=== PATIENT | male | born 1955 | race Caucasian/White ===

== ENCOUNTER 2018-03-29 05:26 | Observation (INO) | payer OTHER ==
--- NOTE | 2018-03-24 08:36 | GHP ---
[f rep st] PREOP HISTORY AND PHYSICAL DATE OF SURGERY: He will be an a.m. admission for surgery at [facility] on March 29. PROBLEM: Left knee arthritis. HISTORY OF PRESENT ILLNESS: The patient is a 62-year-old man admitted for a left total knee arthropl asty. He has known severe degenerative arthritis in his left knee. The pain is debilitating and it limits his activities of daily living. He has failed previous injection therapy. He has also tried physical therapy without benefit. He will undergo a left total knee arthroplasty. PAST MEDICAL HISTORY: He is treated for hypertension. He has an enlarged prostate and has had some mild problems with urinary retention. He had a brain aneurysm treated with surgery in 2002. CURRENT MEDICATIONS: Amlodipine 10 mg per day, tamsulosin 0.4 mg per day, venlafaxine extended relea se 150 mg per day, Ambien 10 mg p.r.n. for sleep. SOCIAL HISTORY: The patient does not smoke cigarettes and drinks occasional alcohol. 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 His daughter is going to stay with him when he goes home [facility]. FAMILY HISTORY: Positive for cancer. PHYSICAL EXAMINATION: VITAL SIGNS: Height 6 feet 1 inch. Weight 235 pounds. BMI 31. EYES: Conju nctivae and sclerae are clear. Pupils are round and reactive. MOUTH: He has complete upper and low er dentures. CHEST: Clear. HEART: Regular rhythm. No murmurs. EXTREMITIES: Pertinent findings limited to his left knee. No effusion. He is tender along the medial joint line. He has mild pseud olaxity of his medial collateral ligament. His ligaments are otherwise stable. He has full extensio n to 120 degrees of flexion. IMAGING: His films show advanced medial compartment degenerative arthritis in the left knee. He is bone on bone. He has peripheral osteophytes and subchondral sclerosis. IMPRESSION ON ADMISSION: 1. Left knee advanced medial compartment degenerative arthritis. He is prepared for a left total kn ee arthroplasty. 2. Treatment for hypertension. 3. History of prostate enlargement with occasional urinary retention. 4. Brain aneurysm surgery in 2002. 5. Treatment for depression. PLAN: He will undergo a left total knee arthroplasty. The surgery has been described to him, includ ing the risks, complications, expectations, and recovery time. I have stressed the importance of pos toperative physical therapy. I have advised him that around 15% of people do not get a satisfactory result with a total knee replacement. All his questions have been answered and he consents to ezra emerson. He set up to go to outpatient physical therapy in [place]. /[id number]/MODL
[2018-03-29] MEDS ORDERED: LIDOCAINE 1% 2 ML INJ ID PRN (05:40)
[2018-03-29] MEDS ORDERED: ceFAZolin 2 GM/SWFI 2 GM/20 ML SYR IVP ONE (05:40)
[2018-03-29] MEDS ORDERED: ONDANSETRON 4 MG/2 ML VIAL IVP ONE (05:40)
[2018-03-29] MEDS ORDERED: LR 1,000 ML IV ONE (05:40)
[2018-03-29] MEDS ORDERED: FAMOTIDINE 20 MG TAB PO ONE (05:40)
[2018-03-29] MEDS ORDERED: ACETAMINOPHEN 325 MG TAB PO ONE (05:40)
[2018-03-29] MEDS ORDERED: GABAPENTIN 300 MG CAP PO ONE (05:40)
[2018-03-29] MEDS ORDERED: TRANEXAMIC ACID 3,000 MG in NS (SYRINGE) 50 ML IRR ONE (05:40)
[2018-03-29] MEDS ORDERED: DEXAMETHASONE 4 MG/ML VIAL IVP ONE (05:40)
[2018-03-29] MEDS ORDERED: ROPIVACAINE 0.2% 80 MG, EPINEPHrine 0.2 MG, KETOROLAC TROMETHAMINE 30 MG in SYRINGE 0 ML IU ONE (06:00)
[2018-03-29] MEDS ORDERED: TRANEXAMIC ACID 1,000 MG in NS (SYRINGE) 50 ML IV ONE (06:00)
[2018-03-29] MEDS ORDERED: POVIDONE-IODINE 20 ML in SODIUM CL IRRIG SOLUTION 500 ML IRR ONE (06:00)
[2018-03-29] MEDS ORDERED: VANCOMYCIN 1 GM VIAL ONE (06:36)
[2018-03-29] MEDS ORDERED: ceFAZolin 1 GM/5 ML SYR ONE (06:37)
--- NOTE | 2018-03-29 06:43 | PDANEPAE ---
ANE History of Present Illness 62 year old male with PMHx of HTN, previous brain aneursym s/p clipping, mild obesity and NEGAR risk factors presents for left total knee arthroplasty. ANE Past Medical History - Cardiovascular History Hx Hypertension: Yes Hx Arrhythmias: No Hx Chest Pain: No Hx Coronary Artery / Peripheral Vascular Disease: No Hx CHF / Valvular Disease: No Hx Palpitations: No - Pulmonary History Hx COPD: No Hx Asthma/Reactive Airway Disease: No Hx Recent Upper Respiratory Infection: No Hx Oxygen in Use at Home: No Hx Sleep Apnea: No Sleep Apnea Screening Result - Last Documented: Positive - Neurologic History Hx Cerebrovascular Accident: No Hx Seizures: No Hx Dementia: No Neurologic History Comment: brain aneurysm clipped - Endocrine History Hx Diabetes: No Hypothyroid: No Hyperthyroid: No Obesity: mild - Renal History Hx Renal Disorders: No - Liver History Hx Hepatic Disorders: No - Neurological & Psychiatric Hx Hx Neurological and Psychiatric Disorders: Yes Neurological / Psychiatric History Comment: no residule effect - Cancer History Hx Cancer: No - Congenital Disorder History Hx Congenital Disorders: No Congenital History Comment: grandfather had aortic anuerysm - GI History Hx Gastrointestinal Disorders: No - Other Health History Other Health History: dentures upper and lower - Chronic Pain History Chronic Pain: No - Surgical History Prior Surgeries: hernia repair ANE Review of Systems Review of systems is: negative Review of Systems: - Exercise capacity Exercise capacity: >=4 METS METS (RN): 4 METS ANE Patient History - Allergies Allergies/Adverse Reactions: No Known Allergies Allergy (Verified 02/28/18 13:58) - Home Medications Home medications: home medication list seen and reviewed Home Medications: Acetamn/Diphenhydramine 500/25 [Tylenol PM (*)] 1 each PO HS 02/28/18 [Last Taken Unknown] Multivitamins [Multivitamin (*)] 1 each PO DAILY 02/28/18 [Last Taken 03/22/18] Tamsulosin HCl [Flomax 0.4 MG (*)] 0.4 mg PO DAILY 02/28/18 [Last Taken 23:00] Venlafaxine Xr [Effexor Xr 75MG (*)] 150 mg PO DAILY 02/28/18 [Last Taken 04:00] Zolpidem Tartrate [Ambien 5MG (*)] 5 mg PO HS 04/09/18 [Last Taken 03/28/18 23: 00] amLODIPine BESYLATE [Norvasc 10 mg (*)] 10 mg PO DAILY 02/28/18 [Last Taken 06/08 23:00] - NPO status NPO Since - Liquids (Date): 03/28/18 NPO Since - Liquids (Time): 22:00 NPO Since - Solids (Date): 03/28/18 NPO Since - Solids (Time): 18:00 - Anes Hx Anes Hx: no prior problems - Smoking Hx Smoking Status: Former smoker Marijuana use: No - Alcohol Use Alcohol Use: Rarely - Family Anes Hx Family Anes Hx: neg - N/A Family Hx Anesthesia Complications: NONE ANE Labs/Vital Signs - Vital Signs Vital Signs: reviewed preoperatively; see RN documention for details Blood Pressure: 133/89 Heart Rate: 77 Respiratory Rate: 16 O2 Sat (%): 94 Height: 182.88 cm Weight: 104.326 kg ANE Physical Exam - Airway Neck exam: FROM Mallampati Score: Class 2 Mouth exam: normal dental/mouth exam - Pulmonary Pulmonary: no respiratory distress - Cardiovascular Cardiovascular: regular rate and rhythym - ASA Status ASA Status: III ANE Anesthesia Plan Anesthesia Plan: GA w LMA (General anesthesia as "back-up plan"), MAC, spinal Regional Anesthesia: continuous NB, adductor canal FNB, POPC/PSR Total IV Anesthesia: No
[2018-03-29] MEDS ORDERED: MIDAZOLAM 2 MG/2 ML VIAL IVP ONE (06:57)
--- NOTE | 2018-03-29 07:05 | PDHPUP ---
History & Physical Update H&P update statement: This history and physical update is based on an assessment of the patient which was completed after admission or registration (within 24 hours), but prior to the surgery/procedure. H&P update: H&P reviewed & patient examined
[2018-03-29] MEDS ORDERED: PROPOFOL/EMULSION 500 MG/50 ML BOTTLE IV ONE ×2 (07:07→08:01)
[2018-03-29] MEDS ORDERED: DEXAMETHASONE 4 MG/ML VIAL ONE (07:09)
[2018-03-29] MEDS ORDERED: HYDROmorphONE/DILAUDID 2 MG/ML INJ IVP PRN (08:13)
[2018-03-29] MEDS ORDERED: fentaNYL 100 MCG/2 ML INJ IVP PRN (08:13)
[2018-03-29] MEDS ORDERED: LR 500 ML IV PRN (08:13)
[2018-03-29] MEDS ORDERED: epHEDrine SULFATE 10 MG/ML SYR IVP PRN (08:13)
[2018-03-29] MEDS ORDERED: oxyCODONE IR 5 MG TAB PO PRN ×2 (08:13→09:17)
[2018-03-29] MEDS ORDERED: ONDANSETRON 4 MG/2 ML VIAL IVP PRN ×2 (08:13→09:17)
[2018-03-29] MEDS ORDERED: NALOXONE HCL 0.4 MG/ML INJ IVP PRN (08:13)
[2018-03-29] MEDS ORDERED: LABETALOL HCL 5 MG/ML 20 ML MDV IVP PRN (08:13)
[2018-03-29] MEDS ORDERED: ACETAMINOPHEN 500 MG TAB PO PRN (08:13)
[2018-03-29] MEDS ORDERED: PHENYLEPHRINE HCL 100 MCG/ML SYR IVP PRN (08:13)
[2018-03-29] MEDS ORDERED: ONDANSETRON 4 MG/2 ML VIAL ONE (08:14)
[2018-03-29] MEDS ORDERED: ROPIVACAINE HCL 150 MG/30 ML INJ ONE (08:14)
--- NOTE | 2018-03-29 09:04 | POSTOPPROG ---
Post Op Note Date of Operation: 03/29/18 Surgeon: Wade Harrison Instructional Facilitator: Myla/Ivan Anesthesiologist: Dr. Jeevan Jarvis Anesthesia: IV Sedation, Spinal Post-op Diagnosis: Left knee severe degenerative arthritis with varus deformity. Procedure: Left total knee arthroplasty Inf/Abcess present in the surg proc area at time of surgery?: No EBL: 50-100 (Adductor canal block in PACU with indwelling catheter)
[2018-03-29] MEDS ORDERED: NS 500 ML IV PRN (09:17)
[2018-03-29] MEDS ORDERED: ONDANSETRON DISINTEGRATING 4 MG TAB PO PRN (09:17)
[2018-03-29] MEDS ORDERED: MAGNESIUM HYDROXIDE 30 ML UDCUP PO PRN (09:17)
[2018-03-29] MEDS ORDERED: diphenhydrAMINE 25 MG CAP PO PRN (09:17)
[2018-03-29] MEDS ORDERED: DIPHENOXYLATE/ATROPINE LOMOTIL 1 TAB PO PRN (09:17)
[2018-03-29] MEDS ORDERED: PROMETHAZINE HCL 25 MG SUPPR PR PRN (09:17)
[2018-03-29] MEDS ORDERED: POLYETHYLENE GLYCOL 3350 17 GM PKT PO PRN (09:17)
[2018-03-29] MEDS ORDERED: PROMETHAZINE HCL 25 MG/ML INJ IVP PRN (09:17)
[2018-03-29] MEDS ORDERED: BISACODYL 10 MG SUPP PR PRN (09:17)
[2018-03-29] MEDS ORDERED: LACTULOSE 20 GM/30 ML UDCUP PO PRN (09:17)
[2018-03-29] MEDS ORDERED: traMADol 50 MG TAB PO PRN (09:17)
[2018-03-29] MEDS ORDERED: LR 1,000 ML IV SCH (09:30)
--- NOTE | 2018-03-29 09:44 | GOP ---
[f rep st] OPERATIVE REPORT DATE OF OPERATION: 03/29/2018 SURGEON: Wade Harrison MD RADIATION ONCOLOGY THERAPIST: Osmar Lanza CFA and Daniel Lee. ANESTHESIA: Combination of Marcaine spinal, IV sedation, and adductor canal block. ANESTHESIOLOGIST: Jeevan Jarvis MD. PREOPERATIVE DIAGNOSIS: Left knee severe degenerative arthritis. POSTOPERATIVE DIAGNOSIS: Left knee severe degenerative arthritis. PROCEDURE PERFORMED: 03/29/2018, a left total knee arthroplasty. FINDINGS: DESCRIPTION OF PROCEDURE: The patient was given 2 g of IV Ancef preoperatively within 60 minutes of surgery. He also received a 1000 mg of IV tranexamic acid. He was placed on the operating room table and given spinal anesthesia with Marcaine by Dr. Jarvis. He was then placed supine and given IV sedation. A Pitt catheter was not used. He wore a GUEVARA stocking and SCD on the nonoperative leg. A bolster was placed under his left hip to prevent excessive external rotation of the left lower extremity. His left lower extremity was prepped with ChloraPrep from the upper thigh tourniquet to the tips of the toes. It was draped free using sterile sheets, stockinette, and Ioban plastic adhesive drape. The lower leg was wrapped with compressive Coban. The leg was exsanguinated with elevation and a 6-inch compressive wrap, and the pneumatic tourniquet was inflated to 275 mmHg. The World Health Organization time-out was performed to verify the correct patient identity and the correct surgical side and site. The [place] time-out was also performed. The [employer] leg holding device was sterilely attached to the operating room table and used throughout the procedure to help position the knee. Many years ago the patient had had a previous large incision on the knee. He had a 6-7 inch curved medial parapatellar incision from his prior operation. I reopened the original curved medial parapatellar incision. Subcutaneous tissues were sharply divided and hemostasis was obtained using electrocautery. The capsule and synovium were divided in a medial parapatellar fashion. Distally as I extended the arthrotomy down over the flare of the medial tibial plateau I inadvertently divided the medial 1/3 of his patellar tendon attachment. It looks like with his previous surgery many years ago his patellar tendon attachment had been shifted medially so that it was attached more medially over the flare of the tibial plateau. The fibers were cut in an oblique fashion. At the end of the procedure they were repaired. He had quite a bit of scarring in the medial capsule and subcutaneous tissues from his previous operation. Extensive degenerative changes were present in the medial compartment. The medial capsule and periosteum were elevated off the rim of the medial tibial plateau all the way around to the posteromedial corner. His medial collateral ligament was released enough to balance the medial side of the knee and correct the varus deformity. In order to improve exposure, his patella was prepared first. The original thickness of the patella was measured. Peripheral osteophytes were removed. I cut a flat surface on the back of the patella. It was sized for a 41 mm round resurfacing patellar component. I removed enough bone from the patella such that the remaining bone plus the thickness of the patellar component recreated the original thickness of the patella. The composite thickness was 26 mm. The intramedullary alignment guide system was used to set up the distal femoral cut. The distal femur was cut in 5 degrees of valgus. Because of a 5-8 degree flexion contracture preoperatively, I made a +2 mm cut on the distal femur. The sizing jig was used to determine proper femoral sizing. I shifted the jig anteriorly 1 mm in order to accommodate a size 8 femoral component without notching the anterior cortex. The 5 in 1 cutting block was applied, and the anterior and posterior condylar cuts and chamfer cuts were made. The final jig was used to remove the central portion of the distal femur to accommodate the posterior stabilized femoral component. I was careful to determine proper rotation by referencing off [place] line and other bony landmarks. Each cut was checked for accuracy before and after it was made. The femur was sized for a size 8 posterior stabilized component. Next, the tibia was prepared. The proximal tibial cut was made using the extramedullary alignment guide system. The cut was made in a few degrees of posterior slope. I was careful to achieve proper varus valgus alignment and proper rotation. The posterior compartment was cleared of meniscal remnants. Osteophytes were removed from the back of the femoral condyles. I checked the flexion and extension gaps, and they were equal, balanced and rectangular. The tibia was sized for a size 7 component. With the trial components in place, I selected an 11 mm posterior stabilized tibial insert. The knee came to full extension and flexed to 130 degrees. There was no overstuffing in flexion. His collateral ligaments were stable and balanced in 90 degrees of flexion and full extension. The trial patellar button was applied, and patellar tracking was checked. Tracking was excellent without any digital pressure. 40 mL of the joint anesthetic cocktail were injected into the capsule, the periarticular structures, the quadriceps muscle and tendon areas, and the subcutaneous tissues along the skin edges. The surfaces were prepared for cementing. They were carefully cleaned with the pulsating lavage irrigation and thoroughly dried. The CarboJet device was used to blow dry the cancellous surfaces. A double batch of high viscosity methylmethacrylate cement with 2 g of powdered vancomycin added was mixed. While it was still in a doughy state, all 3 components were cemented in place. Excess cement was removed before it hardened. The 11 mm trial tibial insert was re-tried and was the proper thickness. The actual component was inserted and locked into place. The knee was thoroughly irrigated 1 final time with a dilute Betadine solution. The tourniquet was deflated and the total tourniquet time was 51 minutes. I then instilled 50 cc of tranexamic acid locally and left it sit in the wound for 3 or 4 minutes. The oblique incision through the medial 1/3 of the patellar tendon was repaired with interrupted gbiava-et-mamqz #2 FiberWire sutures. The lateral 2/3 to 1/2 of the patellar tendon attachment was still intact. I could flex the knee to 130 degrees without distracting the repair site of the medial portion of the patellar tendon. The vastus medialis portion of the extensor mechanism was repaired with several interrupted [id number]-[id number] #2 FiberWire sutures. The capsule and synovium were closed first with multiple vooekp-jo-rplrd 0 PDS sutures, followed by a running #2 barbed Ethicon Stratafix PDO suture. The subcutaneous tissues were closed with a running 0 barbed Ethicon Stratafix Monoderm suture. The skin was closed with a running 3-0 barbed Ethicon Stratafix Monoderm subcuticular suture. The skin was sealed with half-inch Steri-Strips. The wound was covered with a large Mepilex waterproof sterile dressing and a 6-inch compressive wrap. A long-leg GUEVARA stocking and SCD were applied followed by the cooling device. The patient wore a stocking and SCD on the opposite leg during the procedure. The Mediplex sacral dressing was applied. I used a size 8 Donnelly and Nephew cemented Oxinium posterior stabilized femoral component, a size 7 cemented tibial base plate, an 11 mm posterior stabilized tibial insert and a 41 mm cemented round all-polyethylene resurfacing patellar component. The estimated blood loss following deflation of the tourniquet was about 100 cc. The sponge and needle count were correct on 2 occasions. He was awakened from anesthesia, transferred to his [facility] and taken to PACU in satisfactory condition. In the PACU, for additional postoperative pain control, Dr. Jeevan Jarvis performed an adductor canal block with an indwelling catheter. Osmar Lanza and Dane Love acted as surgical assistants. Their assistance was a medical necessity for safe completion of the procedure. Copy requested to: Osmar Bowden MD [facility] /[id number]/MODL MTDD
[2018-03-29] MEDS: KETOROLAC 15 MG/1 ML SDV IVP SCH ×3 (11:48→23:51)
[2018-03-29] MEDS: TAMSULOSIN HCL 0.4 MG CAP PO SCH (11:49)
[2018-03-29] MEDS: ACETAMINOPHEN 325 MG TAB PO SCH ×3 (11:49→23:51)
[2018-03-29] MEDS ORDERED: ceFAZolin 2 GM/DEXTROSE 100 ML IV SCH (14:00)
[2018-03-29] MEDS: CYCLOBENZAPRINE 10 MG TAB PO PRN (14:27)
--- NOTE | 2018-03-29 16:03 | POSTANESTH ---
Post Anesthetic Evaluation Cardiovascular Status: Normal, Stable, Similar to Pre-Op Cond Respiratory Status: Normal, Stable, Similar to Pre-op Cond. Level of Consciousness/Mental Status: Can Participate in Eval, Alert and Oriented Pain Control: Adequate, Prn Tx Ordered Nausea/Vomiting Control: Adequate, Prn Tx Ordered Complications Possibly Related to Anesthesia: None Noted (Pain well controlled. Patient with indwelling saphenous/AC catheter. Patient will be seen by anesthesiologist tomorrow morning for bolus and removal of said catheter.)
[2018-03-29] MEDS: ceFAZolin 2 GM/SWFI 2 GM/20 ML SYR IVP SCH ×2 (16:08→23:52)
[2018-03-29] MEDS: SENNOSIDES/DOCUSATE SODIUM TAB PO SCH (20:52)
[2018-03-29] MEDS: ASPIRIN 325 MG TAB PO SCH (20:52)
[2018-03-29] MEDS: FAMOTIDINE 20 MG TAB PO SCH (20:52)
[2018-03-29] MEDS ORDERED: ZOLPIDEM TARTRATE 5 MG TAB PO SCH (21:00)
[2018-03-30] MEDS: KETOROLAC 15 MG/1 ML SDV IVP SCH (05:16)
[2018-03-30] MEDS: ACETAMINOPHEN 325 MG TAB PO SCH (05:16)
[2018-03-30] MEDS ORDERED: ROPIVACAINE HCL 150 MG/30 ML INJ ONE (08:00)
[2018-03-30 08:10] VITALS: BP 130/90
--- NOTE | 2018-03-30 08:16 | SOAPPROG ---
SOAP Progress Note Assessment/Plan: Assessment: POD #1. s/p L TKA Awake, alert, afebrile. Mild to no pain overnight. Post op films look good. VSS. H/H ok. Dressing clean and dry. OOB with PT yesterday. Plan: PT/OT today. D/c to home later today. Would like home PT. 03/30/18 08:14 Objective: Vital Signs Temp Pulse Resp BP Pulse Ox 36.7 C 76 16 130/90 H 96 03/30/18 08:00 03/30/18 08:00 03/30/18 08:00 03/30/18 08:00 03/30/18 08:00 Laboratory Results 03/30/18 04:45 03/29/18 03/30/18 03/31/18 05:59 05:59 05:59 Intake Total 1350 Output Total 1700 Balance -350 ICD10 Worksheet Patient Problems: Problems Problem Status Onset Osteoarthritis of left knee Acute
--- NOTE | 2018-03-30 08:18 | PDIAF ---
- Diagnosis Diagnosis: L knee OA Code Status: Full Code - Medication Management Discharge Medications: Medications to Continue on Transfer Multivitamins [Multivitamin (*)] 1 each PO DAILY 02/28/18 [Last Taken 03/22/18] Tamsulosin HCl [Flomax 0.4 MG (*)] 0.4 mg PO DAILY 02/28/18 [Last Taken 23:00] Venlafaxine Xr [Effexor Xr 75MG (*)] 150 mg PO DAILY 02/28/18 [Last Taken 04:00] Zolpidem Tartrate [Ambien 5MG (*)] 5 mg PO HS 02/28/18 [Last Taken 03/28/18 23: 00] amLODIPine BESYLATE [Norvasc 10 mg (*)] 10 mg PO HS 02/28/18 [Last Taken 23:00] Acetaminophen [Tylenol 325mg (*)] 650 mg PO Q6HRS tab 03/30/18 [Last Taken Unknown] Aspirin [Aspirin 325 mg (*)] 325 mg PO DAILY tab 03/30/18 [Last Taken Unknown] Ferrous Sulfate [Slow Fe 140 MG (*)] 140 mg PO DAILY tab.er 03/30/18 [Last Taken Unknown] Ondansetron Odt [Zofran Odt 4 mg (*)] 4 mg PO Q4HRS PRN tab 03/30/18 [Last Taken Unknown] Sennosides/Docusate Sodium [Senokot-S] 1 - 2 tab PO BID tab 03/30/18 [Last Taken Unknown] celeCOXIB [Celebrex (*)] 200 mg PO DAILY cap 03/30/18 [Last Taken Unknown] oxyCODONE IR [Oxycodone Ir (*)] 5 - 10 mg PO Q3HRS PRN tab 03/30/18 [Last Taken Unknown] traMADol [Ultram 50 mg (*)] 50 mg PO Q6HRS PRN tab 03/30/18 [Last Taken Unknown ] Discharge Medications: Refer to the Discharge Home Medication list for PRN reason. - Orders Services needed: Home Care, Physical Therapy Home Care Face to Face: I certify that this patient was under my care and that I had the required [id number] encounter meeting the encounter requirements on the discharge day. My findings support the fact that the patient is homebound as defined in Home Care Face to Face Continued: [facility] Chapter 7 Medicare Benefits Manual 30.1.1 , The condition of the patient is such that there exists a normal inability to leave home and consequently, leaving home would require a considerable and taxing effort. Diet Recommendation: no restrictions on diet Diet Texture: Regular Texture Diet Pitt: Not applicable Joaquim Stockings Discontinue Date: 1 week Wound Care Instructions: keep clean and dry. You may shower. Activity/Weight Bearing Restrictions: as tolerated. Equipment: Zero knee while in bed as tolerated. - Follow Up Care Current Providers and Referrals: DINORAH DOSHI [Primary Care Provider] - Wade Harrison MD [Medical Doctor] - follow up as scheduled
[2018-03-30] MEDS: FAMOTIDINE 20 MG TAB PO SCH (08:35)
[2018-03-30] MEDS: SENNOSIDES/DOCUSATE SODIUM TAB PO SCH (08:35)
[2018-03-30] MEDS: TAMSULOSIN HCL 0.4 MG CAP PO SCH (08:35)
[2018-03-30] MEDS: CYCLOBENZAPRINE 10 MG TAB PO PRN (08:35)
[2018-03-30] MEDS: ASPIRIN 325 MG TAB PO SCH (08:35)
--- NOTE | 2018-03-30 08:41 | GDS ---
[f rep st] DISCHARGE SUMMARY ADMISSION DIAGNOSIS: Severe left knee OA. DISCHARGE DIAGNOSIS: Severe left knee OA. OPERATION PERFORMED: Left total knee arthroplasty. POSTOPERATIVE COMPLICATIONS: None. CONDITION ON DISCHARGE: Improved. DESCRIPTION OF HOSPITAL COURSE: The patient was admitted to the hospital on the day of surgery. His admission white blood cell count was 9.05. His hemoglobin was 16.3 and his hematocrit was 48.7. Th e same day under a combination of Marcaine spinal anesthesia and IV sedation, the patient underwent a left total knee arthroplasty. A Pitt catheter was not used. He was able to void spontaneously fol lowing surgery. He was treated with multimodal DVT prophylaxis including full-strength aspirin, GUEVARA stockings, and SCDs. On the first postoperative day, the patient's hemoglobin and hematocrit were 14.4 and 43.8. He did n ot require any autotransfusion. He was seen by Physical Therapy and made good progress with knee ran ge of motion exercises and ambulation. The patient was also given an adductor canal block for additi onal postoperative pain control. He received a second dose through the catheter which was removed pr ior to discharge. By the time of discharge, the patient was independent with his walker and afebrile. DISPOSITION: The patient is discharged to his home. He will have home physical therapy. He has pre scriptions for tramadol, Celebrex, and oxycodone for pain control. GUEVARA stockings x1 week. Zero knee while in bed as tolerated. He will use his walker for ambulation. He will be seen back in the [facility] in 10-12 days. He is to call the office sooner if he has any problems or questions. Full-strengt h aspirin x21 days for DVT prophylaxis. Copy requested to: Chidi Garza /[id number]/MODL
[2018-03-30] MEDS ORDERED: VENLAFAXINE XR 75 MG CAP PO SCH (09:00)
[2018-03-30] MEDS ORDERED: FERROUS SULFATE 140 MG TAB.ER PO SCH (09:00)
--- NOTE | 2018-03-30 09:27 | SOAPPROG ---
RITA Progress Note Assessment/Plan: Assessment: Pt. seen. Doing very well. Good progress with PT. Little pain. Plan: PT today. DC later today. 03/30/18 09:26 Objective: Vital Signs Temp Pulse Resp BP Pulse Ox 36.7 C 76 16 130/90 H 96 03/30/18 08:00 03/30/18 08:00 03/30/18 08:00 03/30/18 08:00 03/30/18 08:00 Laboratory Results 03/30/18 04:45 03/29/18 03/30/18 03/31/18 05:59 05:59 05:59 Intake Total 1350 Output Total 1700 Balance -350 ICD10 Worksheet Patient Problems: Problems Problem Status Onset Osteoarthritis of left knee Acute
--- NOTE | 2018-03-30 11:42 | POSTANESTH ---
Post Anesthetic Evaluation Cardiovascular Status: Normal, Stable, Similar to Pre-Op Cond Respiratory Status: Normal, Stable, Similar to Pre-op Cond. Level of Consciousness/Mental Status: Can Participate in Eval, Alert and Oriented Pain Control: Adequate, Prn Tx Ordered Nausea/Vomiting Control: Adequate, Prn Tx Ordered Complications Possibly Related to Anesthesia: None Noted (Patient seen and evaluated this morning by anesthesiologist. Patient relatively pain free, up and moving in his hospital room. Left saphenous/AC catheter still in place. Catheter aspirated (negative) and Ropivicain 0.5% 5ml injected. Patient stable and tolerated procedure well. Catheter removed with tip intact.)
--- NOTE | 2018-03-30 12:34 | ASMTCMCOM ---
CM Note CM Note Notes: Pt s/p L total knee. Pt medically stable for d/c. PT rec home/outpatient. Pt declines [facility]. No CM d/c needs identified. Date Signed: 03/30/2018 12:33 PM Electronically Signed By:RIVKA Prakash
== END 2018-03-30 13:13 | disposition home health service (06) ==
LOC: F3N 05:26
PROVIDERS: ADMIT Orthopaedic Surgery; ATTEND Orthopaedic Surgery
DX: M17.12 Unilateral primary osteoarthritis, left knee (principal); I10 Essential (primary) hypertension; N40.1 Benign prostatic hyperplasia with lower urinary tract symptoms; R33.9 Retention of urine, unspecified
CPT/HCPCS: 27447; 64450; 73560; 77073; 97116; 97161; 97165; 97530; G0378; C1713; J0171; J0690; J1100; J1885; J2250; J2370; J2405; J2704; J2795; J3370